=== PATIENT | female | born 1960 | race Hispanic/Latino ===

== ENCOUNTER 2016-07-27 08:16 | Emergency (ER) | payer OTHER ==
[2016-07-27 08:30] VITALS: BP 111/73; PULSE 75; TEMP 98; O2SAT 100; BMI 24.8
--- NOTE | 2016-07-27 08:34 | ED PDOC ---
HPI: General Adult Time Seen by Provider: 07/27/16 08:17 Chief Complaint (Nursing): Abdominal Pain Chief Complaint (Provider): left side pain History Per: Patient History/Exam Limitations: no limitations Onset/Duration Of Symptoms: Days (1) Additional Complaint(s): 55yo female comes to the ED complaining of left side abdominal pain since yesterday. No chest pain, shortness of breath, falls, nausea, vomit, diarrhea, vaginal bleeding, dysuria, hematuria, vaginal discharge. Past Medical History Reviewed: Historical Data, Nursing Documentation, Vital Signs Vital Signs: Last Vital Signs Temp 98 F 07/27/16 08:23 Pulse 75 07/27/16 08:23 Resp BP 111/73 07/27/16 08:23 Pulse Ox 100 07/27/16 08:37 - Medical History PMH: No Chronic Diseases - Surgical History Surgical History: (x 2) - Family History Family History: States: Unknown Family Hx - Social History Drugs: Denies - Home Medications Home Medications: Ambulatory Orders Medication Instructions Recorded Naproxen [Naprosyn] 500 mg PO BID PRN #15 tablet 01/26/16 Albuterol HFA [Ventolin HFA 90 2 puff IH [id number] PRN #1 inhaler 04/02/16 mcg/actuation (8 g)] Promethazine/Codeine 5 ml PO Q12 PRN #100 ml 04/02/16 [Codeine/Promethazine 10 MG/5 Ml-6.25 MG/5 Ml] Ciprofloxacin HCl [Cipro] 250 mg PO BID #6 tab 07/27/16 Ibuprofen [Motrin] 600 mg PO TID 7 Days 07/27/16 - Allergies Allergies/Adverse Reactions: Allergies Allergy/AdvReac Type Severity Reaction Status Date / Time No Known Allergies Allergy Verified 04/02/16 10:28 Review of Systems ROS Statement: Except As Marked, All Systems Reviewed And Found Negative Constitutional: Negative for: Fever Cardiovascular: Negative for: Chest Pain Respiratory: Negative for: Shortness of Breath Gastrointestinal: Positive for: Abdominal Pain. Negative for: Nausea, Vomiting , Diarrhea Genitourinary Female: Negative for: Dysuria, Hematuria, Vaginal Discharge, Vaginal Bleeding Physical Exam - Reviewed Nursing Documentation Reviewed: Yes Vital Signs Reviewed: Yes - Physical Exam Appears: Positive for: Well, Non-toxic, No Acute Distress Head Exam: Positive for: ATRAUMATIC, NORMAL INSPECTION, NORMOCEPHALIC Skin: Positive for: Warm, Dry Eye Exam: Positive for: EOMI, PERRL Gastrointestinal/Abdominal: Positive for: Soft, Tenderness (left lower quadrant only). Negative for: Guarding, Rebound, Other (Periumbilical tenderness, right lower quadrant tenderness) Back: Positive for: Other (left flank tenderness). Negative for: R CVA Tenderness Extremity: Positive for: Normal ROM Neurologic/Psych: Positive for: Alert, Oriented - Laboratory Results Result Diagrams: 07/27/16 09:06 07/27/16 09:06 Interpretation Of Abn Labs: urine rbc trace Urine dip results: Positive for: Leukocyte Esterase - ECG O2 Sat by Pulse Oximetry: 100 (RA) Pulse Ox Interpretation: Normal - Progress ED Course And Treament: 0817: Impression: rule out kidney stone plan: -CT abd/pel w/o -labs -IV fluids -toradol -reassess 950: Stable. AAOx3. Pain free. Tolerated PO. Ambulated with no issues. Fu with pcp. Stones in kidney, not in ureters. Disposition - Clinical Impression Clinical Impression: UTI (urinary tract infection), Abdominal pain, Kidney stones - Patient ED Disposition Is Patient to be Admitted: No Counseled Patient/Family Regarding: Studies Performed, Diagnosis, Need For Followup, Rx Given - Disposition Referrals: [facility] [Outside] - 07/29/16 Werner Hong MD [Medical Doctor] - 07/30/16 Disposition: Routine/Home Disposition Time: 09:52 Condition: CRITICAL Additional Instructions: Return if not better in 3 days. Prescriptions: Ciprofloxacin HCl [Cipro] 250 mg PO BID #6 tab Ibuprofen [Motrin] 600 mg PO TID 7 Days Instructions: Acute Abdominal Pain (ED), Urinary Tract Infection in Women (ED) , Kidney Stones (ED) Forms: [facility] ED School/Work Excuse Additional Comments - Additional Comments Additional Comments: Documented by Clinton Ruelas acting as a scribe for Mimi Lovell MD. All medical record entries made by the Scribe were at my direction and personally dictated by me. I have reviewed the chart and agree that the record accurately reflects my personal performance of the history, physical exam, medical decision making, and the department course for this patient. I have also personally directed, reviewed, and agree with the discharge instructions and disposition.
[2016-07-27] MEDS ORDERED: Sodium Chloride 0.9% 1,000 ML IV STA (08:35)
[2016-07-27 09:12] LABS: BASO % 0.6 % (0.0-2.0); EOS # 0.1 K/uL (0.0-0.7); EOS % 1.3 % (0.0-4.0); HEMATOCRIT 38.7 % (34.0-47.0); LYMPH # 1.8 K/uL (1.0-4.3); LYMPH % 23.7 % (20.0-40.0); MEAN CELL VOLUME 92.8 fl (81.0-99.0); MEAN CORPUSCULAR HEMOGLOBIN 31.6 pg (27.0-31.0); MEAN CORPUSCULAR HGB CONC 34.1 g/dL (33.0-37.0); MEAN PLATELET VOLUME 8.2 fl (7.2-11.7); MONO # 0.6 K/uL (0.0-0.8); MONO % 7.5 % (0.0-10.0); NEUT # 4.9 K/uL (1.8-7.0); NEUT % 66.9 % (50.0-75.0); RED CELL DISTRIBUTION WIDTH 13.6 % (11.5-14.5); WHITE BLOOD COUNT 7.4 K/uL (4.8-10.8)
[2016-07-27 09:25] LABS: ALB/GLOB RATIO 1.2 (1.0-2.1); ALKALINE PHOSPHATASE 81 U/L (38-126); ALT/SGPT 37 U/L (9-52); AST/SGOT 31 U/L (14-36); BILIRUBIN,TOTAL 0.5 mg/dl (0.2-1.3); BLOOD UREA NITROGEN 14 mg/dl (7-17); CALCIUM 8.9 mg/dL (8.4-10.2); CARBON DIOXIDE 23 mmol/L (22-30); CHLORIDE 107 mmol/L (98-107); GFR AFRICAN-AMERICAN > 60; GLUCOSE,RANDOM 90 mg/dL (65-105); POTASSIUM 3.8 MMOL/L (3.6-5.0); SODIUM 144 mmol/l (132-148); TOTAL PROTEIN 7.6 G/DL (6.3-8.2)
--- NOTE | 2016-07-27 09:28 | CT ---
PROCEDURE: CT Abdomen and Pelvis without intravenous contrast HISTORY: R/O stone COMPARISON: Comparison is made to the previous study dated 01/19/2013. TECHNIQUE: Axial and reformatted coronal and sagittal CT images of the abdomen and pelvis were obtained without IV or oral contrast administration. Contrast Dose: 0 Radiation dose: Total exam DLP = 522.34 mGy-cm. FINDINGS: LOWER THORAX: Unremarkable. LIVER: Unremarkable. No gross lesion or ductal dilatation. GALLBLADDER AND BILE DUCTS: Unremarkable. PANCREAS: Unremarkable. No gross lesion or ductal dilatation. SPLEEN: Unremarkable. ADRENALS: Unremarkable. No mass. KIDNEYS AND URETERS: There is a 2 millimeter nonobstructing calculus at the lower pole of the right kidney. There is also punctate less than 2 millimeter calcifications/nonobstructing stone at the midpole of the left kidney. No evidence of hydronephrosis or hydroureter. No evidence of perinephric stranding. VASCULATURE: Unremarkable. No aortic aneurysm. BOWEL: No obstruction. No gross mural thickening. Colonic diverticulosis are seen without evidence of diverticulitis. Mild constipation. APPENDIX: Unremarkable. Normal appendix. PERITONEUM: Unremarkable. No free fluid. No free air. LYMPH NODES: Unremarkable. No enlarged lymph nodes. BLADDER: Unremarkable. REPRODUCTIVE: Unremarkable. BONES: No acute fracture. OTHER FINDINGS: None. IMPRESSION: 2 millimeter nonobstructing calculus at the lower pole of the right kidney. less than 2 millimeter nonobstructing calculus at the midpole left kidney. No evidence of hydronephrosis or hydroureter. Colonic diverticulosis without evidence of diverticulitis. Mild constipation.
== END 2016-07-27 10:14 | disposition home or self-care (01) ==
LOC: H.ER 08:16
DX: N39.0 Urinary tract infection, site not specified (principal); N20.0 Calculus of kidney; R10.9 Unspecified abdominal pain

== ENCOUNTER 2016-11-22 09:33 | Observation (INO) | payer OTHER ==
[2016-11-22 09:33] VITALS: BMI 25.0
--- NOTE | 2016-11-22 11:02 | ED PDOC ---
HPI: Chest Pain Time Seen by Provider: 11/22/16 10:05 Chief Complaint (Nursing): Back Pain History Per: Patient History/Exam Limitations: no limitations Onset/Duration Of Symptoms: Days (2), Gradual Current Symptoms Are (Timing): Still Present Severity: Mild Front/Back of Body, Lg (Color): 1 - pain worse with deep breath no trauma Quality: Sharp Associated Symptoms: denies: Nausea, Dyspnea, Diaphoresis, Syncope Modifying Factors: None Exacerbating Factors: Deep Breathing Alleviating Factors: None Past Medical History Reviewed: Historical Data, Nursing Documentation, Vital Signs Vital Signs: Last Vital Signs Temp 97.7 F 11/22/16 15:45 Pulse 78 11/22/16 15:45 Resp 18 11/22/16 15:45 BP 130/90 11/22/16 15:45 Pulse Ox 98 11/22/16 15:45 - Medical History PMH: No Chronic Diseases - Surgical History Surgical History: (x 2) - Family History Family History: States: Unknown Family Hx - Living Arrangements Living Arrangements: With Family - Social History Current smoker - smoking cessation education provided: No - Home Medications Home Medications: Ambulatory Orders Medication Instructions Recorded Naproxen [Naprosyn] 500 mg PO BID PRN #15 tablet 01/26/16 Albuterol HFA [Ventolin HFA 90 2 puff IH [id number] PRN #1 inhaler 04/02/16 mcg/actuation (8 g)] Promethazine/Codeine 5 ml PO Q12 PRN #100 ml 04/02/16 [Codeine/Promethazine 10 MG/5 Ml-6.25 MG/5 Ml] Ciprofloxacin HCl [Cipro] 250 mg PO BID #6 tab 07/27/16 Ibuprofen [Motrin] 600 mg PO TID 7 Days 07/27/16 Ibuprofen [Motrin Tab] 600 mg PO QID PRN #30 tab 11/22/16 - Allergies Allergies/Adverse Reactions: Allergies Allergy/AdvReac Type Severity Reaction Status Date / Time No Known Allergies Allergy Verified 04/02/16 10:28 JUNO Risk Score for UA/NSTEMI - JUNO Risk Score Age > 64: NO 3 or more CAD Risk Factors: NO Known CAD (Stenosis greater than 50%): NO Aspirin use in past 7 days: NO Severe Angina: NO EKG ST changes greater than 0.5mm: NO Positive Cardiac Marker: NO JUNO Score: 0 Risk %: 5% Curb-65 Severity Score - CURB-65 Severity Score Confusion: No Bun >19mg/dl (>7mmol/L): No Respiratory Rate greater than/equal to 30: No Systolic BP <90 or Diastolic BP less than/equal 60mmHg: No Age >64: No Curb-65 Score: 0 Percentage 30-day mortality: 0.6% Wells Criteria for PE - Wells Criteria for Pulmonary Embolism Clinical Signs and Symptoms of DVT: No P.E is #1 Diagnosis, or Equally Likely: No Heart Rate >100: No Immobilization at least 3 days;Surgery previous 4 weeks: No Previous, objectively diagnosed PE or DVT: No Hemoptysis: No Malignancy w/treatment within 6 months, or palliative: No Total Score: 0 Review of Systems ROS Statement: Except As Marked, All Systems Reviewed And Found Negative Constitutional: Negative for: Fever, Chills Cardiovascular: Positive for: Chest Pain. Negative for: Palpitations, Edema, Light Headedness Respiratory: Negative for: Cough, Shortness of Breath, SOB with Exertion, Pleuritic Pain Gastrointestinal: Negative for: Nausea, Vomiting, Abdominal Pain Neurological: Negative for: Weakness, Numbness Physical Exam - Reviewed Nursing Documentation Reviewed: Yes Vital Signs Reviewed: Yes - Physical Exam Appears: Positive for: Well, Uncomfortable Head Exam: Positive for: ATRAUMATIC, NORMAL INSPECTION, NORMOCEPHALIC Eye Exam: Positive for: Normal appearance Neck: Positive for: Normal, Painless ROM, Supple Cardiovascular/Chest: Positive for: Regular Rate, Rhythm, Chest Non Tender. Negative for: Edema, Gallop, Murmur, Bradycardia, Tachycardia, Irregularly Irregular Respiratory: Positive for: Normal Breath Sounds. Negative for: Decreased Breath Sounds, Accessory Muscle Use, Crackles, Rales, Rhonchi, Stridor, Wheezing , Respiratory Distress Pulses-Radial (L): 2+ Pulses-Radial (R): 2+ Gastrointestinal/Abdominal: Positive for: Normal Exam, Bowel Sounds, Soft. Negative for: Tenderness Back: Positive for: Normal Inspection. Negative for: L CVA Tenderness, R CVA Tenderness Extremity: Positive for: Normal ROM. Negative for: Tenderness, Pedal Edema, Calf Tenderness, Deformity, Swelling Neurologic/Psych: Positive for: Alert, engineer II-XII, Oriented. Negative for: Motor/Sensory Deficits, Facial Droop - Laboratory Results Result Diagrams: 11/22/16 11:18 11/22/16 11:18 - ECG ECG: Positive for: Interpreted By Me ECG Rhythm: Positive for: Normal QRS, Normal ST Segment, Sinus Rhythm. Negative for: ST/T Changes Interpretation Of Abn EKG: rate of 72 no evidence of ischemia O2 Sat by Pulse Oximetry: 99 Pulse Ox Interpretation: Normal - Radiology X-Ray: Interpreted by Me X-Ray Interpretation: No Acute Disease Medical Decision Making Medical Decision Makin pm awaiting ct scan pt comfortable 2pm ct scan performed no pe but suboptimal study will get vq scan pt is comfortable and agree's with plan 4pm pt vq scan low prob will d/c home. a single neg trop r/o mi in this pt with sx for over one week. advise no exertion until seen by cardiology or medical clinic. pt agree's with plan. Disposition - Clinical Impression Clinical Impression: Mid back pain - Patient ED Disposition Is Patient to be Admitted: No Counseled Patient/Family Regarding: Studies Performed, Diagnosis, Need For Followup, Rx Given - Disposition Referrals: [facility] [Outside] Disposition: Routine/Home Disposition Time: 16:18 Condition: GOOD Prescriptions: Ibuprofen [Motrin Tab] 600 mg PO QID PRN #30 tab PRN Reason: Pain, Moderate (4-7) Instructions: Back Pain (ED)
[2016-11-22 11:25] LABS: BASO % 0.6 % (0.0-2.0); EOS # 0.1 K/uL (0.0-0.7); EOS % 1.3 % (0.0-4.0); HEMOGLOBIN 14.1 g/dL (12.0-16.0); LYMPH # 1.8 K/uL (1.0-4.3); MEAN CELL VOLUME 94.8 fl (81.0-99.0); MEAN CORPUSCULAR HEMOGLOBIN 32.4 pg (27.0-31.0); MEAN CORPUSCULAR HGB CONC 34.2 g/dL (33.0-37.0); MEAN PLATELET VOLUME 7.7 fl (7.2-11.7); MONO # 0.6 K/uL (0.0-0.8); MONO % 7.5 % (0.0-10.0); NEUT # 5.7 K/uL (1.8-7.0); NEUT % 68.6 % (50.0-75.0); NRBC % 0.2 % (0.0-0.0); RBC 4.34 Mil/uL (3.80-5.20); WHITE BLOOD COUNT 8.3 K/uL (4.8-10.8)
[2016-11-22 11:36] LABS: ALB/GLOB RATIO 1.2 (1.0-2.1); ALBUMIN 4.6 g/dL (3.5-5.0); ALT/SGPT 20 U/L (9-52); AST/SGOT 40 U/L (14-36); BLOOD UREA NITROGEN 15 mg/dl (7-17); CALCIUM 9.1 mg/dL (8.4-10.2); GFR AFRICAN-AMERICAN > 60; GFR NON-AFRICAN AMERICAN > 60; LIPASE 220 U/L (23-300)
[2016-11-22 11:43] LABS: PARTIAL THROMBOPLASTIN TIME 26.9 Seconds (25.6-37.1); PROTHROMBIN TIME 10.8 Seconds (9.8-13.1)
[2016-11-22 12:01] LABS: MAGNESIUM 2.1 MG/DL (1.6-2.3)
[2016-11-22] MEDS ORDERED: Sodium Chloride 0.9% 50 ML IV ONE (13:06)
[2016-11-22] MEDS ORDERED: Iodixanol 320 MG/ML 100 ML BOTTLE IV ONE (13:06)
--- NOTE | 2016-11-22 14:10 | CT ---
PROCEDURE: CT Chest with contrast (Pulmonary Angiogram) HISTORY: cp r/o pe COMPARISON: None available. TECHNIQUE: Axial computed tomography images were obtained of the chest in the pulmonary arterial phase of enhancement. Coronal and sagittal reformatted images were created and reviewed. Intravenous contrast dose: 90 mL Visipaque 320 Radiation dose: Total exam DLP = 328.61 mGy-cm. This CT exam was performed using one or more of the following dose reduction techniques: Automated exposure control, adjustment of the mA and/or kV according to patient size, and/or use of iterative reconstruction technique. FINDINGS: PULMONARY ARTERIES: Examination limited technically due to timing of scan relative to contrast bolus. No large central pulmonary embolism identified. Cannot rule out embolus in segmental/subsegmental vessels. AORTA: No acute findings. No thoracic aortic aneurysm. LUNGS: Unremarkable. No nodule, mass or pulmonary consolidation. PLEURAL SPACES: Unremarkable. No effusion or pneuomothorax. HEART: Unremarkable. No cardiomegaly. No significant pericardial effusion. LYMPH NODES: No lymphadenopathy. BONES, CHEST WALL: Unremarkable. No fracture or destructive lesion OTHER FINDINGS: Unremarkable. IMPRESSION: Technically limited examination. Cannot evaluate segmental/ subsegmental vessels adequately. No large central embolus identified. The remainder the examination is unremarkable.
--- NOTE | 2016-11-22 15:22 | RAD ---
HISTORY: chest pain r COMPARISON: No prior. TECHNIQUE: Chest PA and lateral FINDINGS: LUNGS: No active pulmonary disease. PLEURA: No significant pleural effusion identified. No pneumothorax apparent. CARDIOVASCULAR: Normal. OSSEOUS STRUCTURES: No significant abnormalities. VISUALIZED UPPER ABDOMEN: Normal. OTHER FINDINGS: None. IMPRESSION: No active disease.
[2016-11-22 15:46] VITALS: PULSE 78
--- NOTE | 2016-11-22 15:49 | NM ---
COMPARISON: CT angiography of the chest dated 11/22/2016 TECHNIQUE: 45.0 mCi technetium 99-m DTPA aerosol. 5.0 mCI technetium 99-m MAA administered intravenously. FINDINGS: VENTILATION COMPONENT: Limited evaluation due to extensive central tracheobronchial deposition. No ventilation defect identified. PERFUSION COMPONENT: There is no perfusion defect identified. IMPRESSION: Lowprobability ventilation perfusion scan for pulmonary embolism.
[2016-11-22 17:01] VITALS: BP 128/76; RESP 20; TEMP 97.8; O2SAT 98
--- NOTE | 2016-11-23 10:20 | CARD ---
APPROVED REPORT EKG Measurement Heart [id number] <Conclusion> Normal sinus rhythm Possible Left atrial enlargement Borderline ECG
== END 2016-11-22 17:01 | disposition home or self-care (01) ==
LOC: H.ER 09:33 → H.EROBSV 11:00
PROVIDERS: ADMIT Emergency Medicine; ATTEND Emergency Medicine
DX: R07.89 Other chest pain (principal)

== ENCOUNTER 2017-06-02 08:02 | Emergency (ER) | payer OTHER ==
[2017-06-02 08:02] VITALS: BMI 25.0
[2017-06-02 08:50] VITALS: RESP 18; O2SAT 98
[2017-06-02] MEDS ORDERED: Lidocaine 5% Patch TD STA (09:14)
--- NOTE | 2017-06-02 09:25 | ED PDOC ---
HPI: Back Chief Complaint (Nursing): Back Pain Chief Complaint (Provider): Back pain History Per: Patient History/Exam Limitations: no limitations Onset/Duration Of Symptoms: Days (x1 week) Current Symptoms Are (Timing): Still Present Quality Of Discomfort: "Pain" Associated Symptoms: None Exacerbating Factor(s): Movement, Standing (in the morning) Additional Complaint(s): Yudy Fulton is a 56 year old female, with no significant past medical history, who presents to the emergency department complaining of right lower back pain radiating down her leg posteriorly onset for x1 week. Patient states the pain is worst with movement and when she gets up in the morning. She denies any numbness, weakness, urinary symptoms, incontinence, fever or trauma. No further medical complaints. PMD: Dony Burroughs Past Medical History Reviewed: Historical Data, Nursing Documentation, Vital Signs Vital Signs: Last Vital Signs Temp 98 F 06/02/17 08:47 Pulse 87 06/02/17 08:47 Resp 18 06/02/17 08:47 BP 117/78 06/02/17 08:47 Pulse Ox 98 06/02/17 08:47 - Medical History PMH: No Chronic Diseases - Surgical History Surgical History: (x 2) - Family History Family History: States: Unknown Family Hx - Social History Current smoker - smoking cessation education provided: No Alcohol: None Drugs: Denies - Immunization History Hx Tetanus Toxoid Vaccination: No Hx Influenza Vaccination: No Hx Pneumococcal Vaccination: No - Home Medications Home Medications: Ambulatory Orders Medication Instructions Recorded Cyclobenzaprine [Cyclobenzaprine 10 mg PO BID PRN #12 tab 11/27/16 HCl] Ibuprofen [Motrin Tab] 600 mg PO PRN PRN 11/27/16 Naproxen [Naprosyn Tab] 375 mg PO BID PRN #20 tab 11/27/16 Cyclobenzaprine HCl 5 mg PO Q8 #20 tablet 06/02/17 Ibuprofen [Motrin] 600 mg PO Q6 PRN #30 tab 06/02/17 Lidocaine 5% [Lidoderm] 1 ea TD DAILY #4 patch 06/02/17 - Allergies Allergies/Adverse Reactions: Allergies Allergy/AdvReac Type Severity Reaction Status Date / Time No Known Allergies Allergy Verified 11/27/16 10:01 Review of Systems ROS Statement: Except As Marked, All Systems Reviewed And Found Negative Constitutional: Negative for: Fever Genitourinary Female: Negative for: Dysuria, Frequency, Incontinence Musculoskeletal: Positive for: Back Pain (right lower radaiting down leg), Leg Pain (right leg) Neurological: Negative for: Weakness, Numbness Physical Exam - Reviewed Nursing Documentation Reviewed: Yes Vital Signs Reviewed: Yes - Physical Exam Appears: Positive for: Non-toxic Head Exam: Positive for: ATRAUMATIC, NORMAL INSPECTION Skin: Positive for: Normal Color, Warm, Dry Eye Exam: Positive for: Normal appearance Neck: Positive for: Painless ROM, Supple Cardiovascular/Chest: Positive for: Regular Rate, Rhythm. Negative for: Murmur Respiratory: Positive for: Normal Breath Sounds. Negative for: Respiratory Distress Gastrointestinal/Abdominal: Positive for: Normal Exam, Soft. Negative for: Tenderness Back: Positive for: Vertebral Tenderness (right lower lumbar and buttocks area, worst with extension of leg. ), Other (Negative straight leg raise test.) Extremity: Negative for: Deformity, Swelling Neurologic/Psych: Positive for: Alert, Oriented (x3), Gait (steady). Negative for: Motor/Sensory Deficits, Aphasia, Facial Droop, Other (no ataxia.) - ECG O2 Sat by Pulse Oximetry: 98 (RA) Pulse Ox Interpretation: Normal Medical Decision Making Medical Decision Making: Initial Impression: sciatica Initial Plan: --Flexeril 5 mg PO --Motrin Tab 600 mg PO --Lidoderm 1ea TD --Patient will make sure to follow up with her primary care doctor. She was advised to take medications as needed and instructed on some stretching exercises. Scribe Attestation: Documented by Jeremy Ko, acting as a scribe for Ted Thompson MD Provider Scribe Attestation: All medical record entries made by the Scribe were at my direction and personally dictated by me. I have reviewed the chart and agree that the record accurately reflects my personal performance of the history, physical exam, medical decision making, and the department course for this patient. I have also personally directed, reviewed, and agree with the discharge instructions and disposition. Disposition - Clinical Impression Clinical Impression: Sciatica - Disposition Disposition Time: 09:35 Condition: IMPROVED Additional Instructions: Ms Fulton, thank you for letting us take care of you today. Your provider was Dr. Thompson. You were treated for Sciatica. The emergency medical care you received today was directed at your acute symptoms. If you were prescribed any medication, please fill it and take as directed. It may take several days for your symptoms to resolve. Return to the Emergency Department if your symptoms worsen, do not improve, or if you have any other problems. Please contact your doctor or call one of the physicians/clinics you have been referred to that are listed on the Patient Visit Information form that is included in your discharge packet. Bring any paperwork you were given at discharge with you along with any medications you are taking to your follow up visit. Our treatment cannot replace ongoing medical care by a primary care provider (PCP) outside of the emergency department. Thank you for allowing the [facility] team to be part of your care today. If you had an X-Ray or CT scan: A Radiologist will review the ED reading if any change in treatment is needed we will contact you. If you had a blood, urine, or wound culture: It will take several days for the results, if any change in treatment is needed we will contact you. If you had an STI test: It will take 48 hours for the results. Please call after 1 week if you have not heard back. Prescriptions: Cyclobenzaprine HCl 5 mg PO Q8 #20 tablet Ibuprofen [Motrin] 600 mg PO Q6 PRN #30 tab PRN Reason: Pain, Moderate (4-7) Lidocaine 5% [Lidoderm] 1 ea TD DAILY #4 patch Forms: [employer] (E[place]ian), [facility] ED School/Work Excuse
[2017-06-02] MEDS ORDERED: Lidocaine 5% Patch TD ONE (09:30)
[2017-06-02 10:00] VITALS: BP 128/78; PULSE 78; TEMP 97
== END 2017-06-02 10:00 | disposition home or self-care (01) ==
LOC: H.ER 08:02
DX: M54.31 Sciatica, right side (principal)

== ENCOUNTER 2017-10-02 14:09 | Emergency (ER) | payer OTHER ==
[2017-10-02 14:10] VITALS: BMI 25.0
[2017-10-02 14:55] VITALS: RESP 18; O2SAT 100
--- NOTE | 2017-10-02 16:34 | ED PDOC ---
HPI: General Adult Time Seen by Provider: 10/02/17 16:10 Chief Complaint (Nursing): GI Problem Chief Complaint (Provider): Rectal Pain History Per: Patient History/Exam Limitations: no limitations Onset/Duration Of Symptoms: Days (x6) Current Symptoms Are (Timing): Still Present Additional Complaint(s): 57 year old female with no significant pmhx presents to the ED for evaluation of rectal pain x6 days. Patient states she had diarrhea on Tuesday which has since resolved. She reports that since she has felt rectal pain, speciifcally when cleaning the area. She denies any rectal bleed. Patient says she thought she felt a pimple in the area and applied Neosporin. Denies fever or lesions elsewhere. PMD: Clinic Past Medical History Reviewed: Historical Data, Nursing Documentation, Vital Signs Vital Signs: Last Vital Signs Temp 98 F 10/02/17 14:52 Pulse 78 10/02/17 14:52 Resp 18 10/02/17 14:52 BP 102/78 10/02/17 14:52 Pulse Ox 100 10/02/17 16:39 - Medical History PMH: No Chronic Diseases - Surgical History Surgical History: (x 2) - Family History Family History: States: Unknown Family Hx - Social History Current smoker - smoking cessation education provided: No Alcohol: None Drugs: Denies - Immunization History Hx Tetanus Toxoid Vaccination: No Hx Influenza Vaccination: No Hx Pneumococcal Vaccination: No - Home Medications Home Medications: Ambulatory Orders Medication Instructions Recorded Cyclobenzaprine [Cyclobenzaprine 10 mg PO BID PRN #12 tab 11/27/16 HCl] Ibuprofen [Motrin Tab] 600 mg PO PRN PRN 11/27/16 Naproxen [Naprosyn Tab] 375 mg PO BID PRN #20 tab 11/27/16 Cyclobenzaprine HCl 5 mg PO Q8 #20 tablet 06/02/17 Ibuprofen [Motrin] 600 mg PO Q6 PRN #30 tab 06/02/17 Lidocaine 5% [Lidoderm] 1 ea TD DAILY #4 patch 06/02/17 Clotrimazole/Betamethasone 1 appl EXT BID #1 tube 10/02/17 [Lotrisone] Mupirocin 2% Ointment [Bactroban 1 appl TP BID #1 tube 10/02/17 Ointment] - Allergies Allergies/Adverse Reactions: Allergies Allergy/AdvReac Type Severity Reaction Status Date / Time No Known Allergies Allergy Verified 11/27/16 10:01 Review of Systems ROS Statement: Except As Marked, All Systems Reviewed And Found Negative Constitutional: Negative for: Fever Gastrointestinal: Positive for: Rectal Pain. Negative for: Hematochezia Physical Exam - Reviewed Nursing Documentation Reviewed: Yes Vital Signs Reviewed: Yes - Physical Exam Appears: Positive for: Well, No Acute Distress Rectal: Positive for: Other (pinpoint white lesions on the left budding area just outside anal opening, no fissure). Negative for: Hemorrhoids, Mass - ECG O2 Sat by Pulse Oximetry: 100 (RA) Pulse Ox Interpretation: Normal Medical Decision Making Medical Decision Makin:24 Initial Impression: Fungal infection, tinea cruris Plan: Patient is medically stable and will be discharged with Rx for Lotrisone and Bactroban. Patient advised to follow up with PMD. Return precautions given. Scribe Attestation: Documented by Rkii Ornelas, acting as a scribe for Kina Moreland MD. Provider Scribe Attestation: All medical record entries made by the Scribe were at my direction and personally dictated by me. I have reviewed the chart and agree that the record accurately reflects my personal performance of the history, physical exam, medical decision making, and the department course for this patient. I have also personally directed, reviewed, and agree with the discharge instructions and disposition. Disposition - Clinical Impression Clinical Impression: Anal irritation - Patient ED Disposition Is Patient to be Admitted: No Counseled Patient/Family Regarding: Diagnosis, Need For Followup, Rx Given - Disposition Disposition: Routine/Home Disposition Time: 16:24 Condition: GOOD Additional Instructions: USE CREAM AND OINTMENT TWICE A DAY (THEY CAN BE MIXED TOGETHER AND USED AT THE SAME TIME) FOLLOW UP WITH YOUR DOCTOR IN A WEEK TO SEE HOW YOU ARE DOING. Prescriptions: Clotrimazole/Betamethasone [Lotrisone] 1 appl EXT BID #1 tube Mupirocin 2% Ointment [Bactroban Ointment] 1 appl TP BID #1 tube Instructions: Skin Rash Forms: [employer] (Kinyarwanda)
[2017-10-02 16:55] VITALS: BP 110/76; PULSE 67; TEMP 97.9
== END 2017-10-02 16:50 | disposition home or self-care (01) ==
LOC: H.ER 14:09
DX: K62.89 Other specified diseases of anus and rectum (principal)

== ENCOUNTER 2018-02-20 08:24 | Day surgery (SDC) | payer OTHER ==
[2017-10-24 18:49] VITALS: BMI 25.0
[2018-02-20] MEDS ORDERED: Lactated Ringer's 500 ML IV ONE (08:37)
[2018-02-20] MEDS ORDERED: Midazolam 2 MG/2 ML VIAL ONE (09:47)
[2018-02-20] MEDS ORDERED: Propofol 10 mg/ml Inj (20 ML) ONE (09:47)
[2018-02-20 10:17] VITALS: TEMP 98
[2018-02-20 10:55] VITALS: BP 109/62; PULSE 81; RESP 17; O2SAT 100
== END 2018-02-20 11:01 | disposition home or self-care (01) ==
LOC: H.ENDO 08:24
PROVIDERS: ATTEND Internal Medicine Gastroenterology
DX: Z12.11 Encounter for screening for malignant neoplasm of colon (principal); K64.8 Other hemorrhoids; K57.30 Diverticulosis of large intestine without perforation or abscess without bleeding; K76.0 Fatty (change of) liver, not elsewhere classified
CPT/HCPCS: 45378; J2001; J2250; J2704; J7120

== ENCOUNTER 2018-04-29 13:47 | Emergency (ER) | payer OTHER ==
[2018-04-29 13:47] VITALS: BMI 25.0
[2018-04-29 14:02] VITALS: O2SAT 99
--- NOTE | 2018-04-29 14:45 | ED PDOC ---
HPI: Abdomen Time Seen by Provider: 04/29/18 14:17 Chief Complaint (Nursing): Abdominal Pain Chief Complaint (Provider): Abdominal pain History Per: Patient Additional Complaint(s): 57 yo female, no PMH, presents to ED with C/O left sided abdominal pain on and off x 1 week. Denies N/V/D. Pt reports pain can move all over abdomen, up and down left side and comes and goes without warning. Denies Chest pain/denies SOB Past Medical History Reviewed: Nursing Documentation, Vital Signs Vital Signs: Last Vital Signs Temp 97.9 F 04/29/18 13:58 Pulse 88 04/29/18 13:58 Resp 20 04/29/18 13:58 BP 119/67 04/29/18 13:58 Pulse Ox 99 04/29/18 13:58 - Medical History PMH: Back Problems, Chronic Pain (back) - Surgical History Surgical History: (x 2) - Family History Family History: States: Unknown Family Hx - Living Arrangements Living Arrangements: With Family - Social History Current smoker - smoking cessation education provided: No Alcohol: None Drugs: Denies - Immunization History Hx Tetanus Toxoid Vaccination: No Hx Influenza Vaccination: No Hx Pneumococcal Vaccination: No - Home Medications Home Medications: Ambulatory Orders Medication Instructions Recorded Cyclobenzaprine [Cyclobenzaprine 10 mg PO TID #20 tab 04/29/18 HCl] Ibuprofen [Motrin] 600 mg PO Q6 #20 tab 04/29/18 - Allergies Allergies/Adverse Reactions: Allergies Allergy/AdvReac Type Severity Reaction Status Date / Time No Known Allergies Allergy Verified 04/29/18 13:57 Review of Systems ROS Statement: Except As Marked, All Systems Reviewed And Found Negative Gastrointestinal: Positive for: Abdominal Pain Physical Exam - Reviewed Nursing Documentation Reviewed: Yes Vital Signs Reviewed: Yes - Physical Exam Appears: Positive for: Well, Non-toxic, No Acute Distress Head Exam: Positive for: ATRAUMATIC, NORMAL INSPECTION, NORMOCEPHALIC Skin: Positive for: Normal Color, Warm, DRY Eye Exam: Positive for: EOMI, Normal appearance, PERRL ENT: Positive for: Normal ENT Inspection Neck: Positive for: Normal, Painless ROM Cardiovascular/Chest: Positive for: Regular Rate, Rhythm Respiratory: Positive for: CNT, Normal Breath Sounds Gastrointestinal/Abdominal: Positive for: Normal Exam, Soft Back: Positive for: Normal Inspection Extremity: Positive for: Normal ROM Neurologic/Psych: Positive for: Alert, Oriented - Laboratory Results Result Diagrams: 04/29/18 15:09 04/29/18 15:09 - ECG O2 Sat by Pulse Oximetry: 99 Medical Decision Making Medical Decision Making: diagnostics ordered and labs and XR reviewed with pt who demonstrated full understanding Abdomen remains soft, non tender and non distended on re-eval. Pt offers no complaints of pain. stable for discharge home Disposition - Clinical Impression Clinical Impression: Flank pain, Gas pain - Patient ED Disposition Is Patient to be Admitted: No - Disposition Disposition: Routine/Home Disposition Time: 16:00 Condition: STABLE Prescriptions: Cyclobenzaprine [Cyclobenzaprine HCl] 10 mg PO TID #20 tab Ibuprofen [Motrin] 600 mg PO Q6 #20 tab Instructions: Flank Pain (DC), Gas and Bloating Forms: [facility] (Malay)
[2018-04-29 15:12] LABS: BASO % 0.6 % (0.0-2.0); EOS # 0.1 K/uL (0.0-0.7); EOS % 1.7 % (0.0-4.0); HEMOGLOBIN 13.9 g/dL (12.0-16.0); LYMPH # 2.2 K/uL (1.0-4.3); MEAN CELL VOLUME 94.1 fl (81.0-99.0); MEAN CORPUSCULAR HEMOGLOBIN 31.3 pg (27.0-31.0); MEAN CORPUSCULAR HGB CONC 33.3 g/dL (33.0-37.0); MEAN PLATELET VOLUME 7.9 fl (7.2-11.7); MONO # 0.5 K/uL (0.0-0.8); MONO % 7.3 % (0.0-10.0); NEUT # 3.8 K/uL (1.8-7.0); NEUT % 57.4 % (50.0-75.0); NRBC % 0.1 % (0.0-0.0); RBC 4.43 Mil/uL (3.80-5.20); WHITE BLOOD COUNT 6.6 K/uL (4.8-10.8)
[2018-04-29 15:15] LABS: SQUAMOUS EPITHIAL 1 /hpf (0-5); URINE BILIRUBIN NEGATIVE (NEGATIVE); URINE BLOOD NEGATIVE (NEGATIVE); URINE CLARITY CLEAR (Clear); URINE COLOR YELLOW (YELLOW); URINE GLUCOSE (UA) NEG (NEGATIVE); URINE LEUKOCYTE ESTERASE NEG Leu/uL (Negative); URINE PROTEIN NEGATIVE (NEGATIVE); URINE UROBILINOGEN 0.2-1.0 mg/dL (0.2-1.0)
[2018-04-29 15:22] LABS: ALB/GLOB RATIO 1.2 (1.0-2.1); ALBUMIN 4.4 g/dL (3.5-5.0); ALT/SGPT 85 U/L (9-52); AST/SGOT 79 U/L (14-36); BLOOD UREA NITROGEN 16 mg/dl (7-17); CALCIUM 9.4 mg/dL (8.4-10.2); GFR NON-AFRICAN AMERICAN > 60
--- NOTE | 2018-04-29 16:25 | RAD ---
Date of service: 04/29/2018 HISTORY: r/o constipation COMPARISON: Comparison made with radiographs of the abdomen 05/30/2013 FINDINGS: BOWEL: No evidence of acute mechanical bowel obstruction. Moderate amount of stool seen within the rectosigmoid and lesser amount in the ascending colon. No gross free intraperitoneal air seen on this limited supine view. BONES: Normal. OTHER FINDINGS: None. IMPRESSION: No evidence of acute mechanical bowel obstruction.
[2018-04-29 17:26] VITALS: BP 123/63; PULSE 83; RESP 16; TEMP 98
== END 2018-04-29 17:25 | disposition home or self-care (01) ==
LOC: H.ER 13:47
DX: R10.9 Unspecified abdominal pain (principal); R14.1 Gas pain

== ENCOUNTER 2018-08-18 13:32 | Emergency (ER) | payer OTHER ==
[2018-08-18 13:32] VITALS: BMI 25.0
[2018-08-18 13:52] VITALS: RESP 18; O2SAT 99
--- NOTE | 2018-08-18 14:33 | ED PDOC ---
Upper Extremity Pain/Injury Time Seen by Provider: 08/18/18 13:56 Chief Complaint (Nursing): Upper Extremity Problem/Injury Chief Complaint (Provider): Upper Extremity Problem/Injury History Per: Patient History/Exam Limitations: no limitations Onset/Duration Of Symptoms: Intermittent Episodes (x1 week) Current Symptoms Are (Timing): Still Present Additional Complaint(s): 57 year old female presents to the emergency department with a complaint of right upper shoulder ongoing intermittently for 1 week. She denies taking medication for relief, radiation of pain, shortness of breath, numbness, weakness, tingling sensation, chest pain, injury, falls, trauma, leg pain or swelling. 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 PCP: Omaira Akbar Past Medical History Reviewed: Historical Data, Nursing Documentation, Vital Signs Vital Signs: Last Vital Signs Temp 98.6 F 08/18/18 13:50 Pulse 73 08/18/18 13:50 Resp 18 08/18/18 13:50 BP 127/81 08/18/18 13:50 Pulse Ox 99 08/18/18 13:50 - Medical History PMH: Back Problems, Chronic Pain (back) - Surgical History Surgical History: (x 2) - Family History Family History: States: Unknown Family Hx - Immunization History Hx Tetanus Toxoid Vaccination: No Hx Influenza Vaccination: No Hx Pneumococcal Vaccination: No - Home Medications Home Medications: Ambulatory Orders Medication Instructions Recorded Cyclobenzaprine [Cyclobenzaprine 10 mg PO TID #20 tab 04/29/18 HCl] Ibuprofen [Motrin] 600 mg PO Q6 #20 tab 04/29/18 Ibuprofen [Motrin] 600 mg PO TID 7 Days tab 08/18/18 - Allergies Allergies/Adverse Reactions: Allergies Allergy/AdvReac Type Severity Reaction Status Date / Time No Known Allergies Allergy Verified 04/29/18 13:57 Review of Systems ROS Statement: Except As Marked, All Systems Reviewed And Found Negative Cardiovascular: Negative for: Chest Pain Respiratory: Negative for: Shortness of Breath Musculoskeletal: Positive for: Other (right upper shoulder pain). Negative for: Leg Pain (or swelling) Neurological: Negative for: Weakness, Numbness (or tingling) Physical Exam - Reviewed Nursing Documentation Reviewed: Yes Vital Signs Reviewed: Yes - Physical Exam Appears: Positive for: Non-toxic, No Acute Distress Head Exam: Positive for: ATRAUMATIC, NORMAL INSPECTION, NORMOCEPHALIC Skin: Positive for: Normal Color. Negative for: Rash Eye Exam: Positive for: Normal appearance Neck: Positive for: Normal, Painless ROM, Supple Cardiovascular/Chest: Positive for: Regular Rate, Rhythm, Chest Non Tender. Negative for: Edema Respiratory: Positive for: Normal Breath Sounds. Negative for: Respiratory Distress Pulses-Radial (R): 2+ Back: Positive for: Normal Inspection. Negative for: L CVA Tenderness Extremity: Positive for: Normal ROM (right shoulder and elbow), Tenderness (right supraclavicular muscle). Negative for: Deformity, Swelling (or erythema of right shoulder) Neurological/Psych: Positive for: Awake, Alert, Normal Tone, Symmetric/Intact Strength (5/5), Oriented. Negative for: Motor/Sensory Deficits - ECG O2 Sat by Pulse Oximetry: 99 (RA) Pulse Ox Interpretation: Normal - Radiology X-Ray: Read By Radiologist X-Ray Interpretation: No Acute Disease - Progress ED Course And Treament: 1605: Stable. AAOx3. Pain free. Tolerated PO. Fu with pcp. No acute findings. Possibly from work related frequent lifting. Medical Decision Making Medical Decision Making: Time: 1420 Initial Plan: * Motrin PO * CXR Time: 1538 --CXR FINDINGS: LINES AND TUBES: None. LUNG AND PLEURA: The lungs are well inflated and clear. No pleural effusion or pneumothorax. HEART AND MEDIASTINUM: The heart is not enlarged. No aortic atherosclerotic calcifications present. The hilar and mediastinal contours are within normal limits. SKELETAL STRUCTURES: The bony structures are within normal limits for the patient's age. VISUALIZED UPPER ABDOMEN: Normal. OTHER FINDINGS: None. IMPRESSION: No active pulmonary disease. Scribe Attestation: Documented by Susannah Mills, acting as a scribe for Ezra Lovell MD. Provider Scribe Attestation: All medical record entries made by the Scribe were at my direction and personally dictated by me. I have reviewed the chart and agree that the record accurately reflects my personal performance of the history, physical exam, medical decision making, and the department course for this patient. I have also personally directed, reviewed, and agree with the discharge instructions and disposition. Disposition - Clinical Impression Clinical Impression: Muscle strain - Patient ED Disposition Is Patient to be Admitted: No Counseled Patient/Family Regarding: Studies Performed, Diagnosis, Need For Followup, Rx Given - Disposition Referrals: [facility] [Outside] - 08/21/18 Disposition: Routine/Home Disposition Time: 16:07 Condition: STABLE Additional Instructions: Return if not better in 3 days. Prescriptions: Ibuprofen [Motrin] 600 mg PO TID 7 Days tab Instructions: Muscle Strain Forms: [facility] ED School/Work Excuse
--- NOTE | 2018-08-18 15:42 | RAD ---
Date of service: 08/18/2018 HISTORY: Chest pain COMPARISON: 11/22/2016. TECHNIQUE: Chest PA and lateral FINDINGS: LINES AND TUBES: None. LUNG AND PLEURA: The lungs are well inflated and clear. No pleural effusion or pneumothorax. HEART AND MEDIASTINUM: The heart is not enlarged. No aortic atherosclerotic calcifications present. The hilar and mediastinal contours are within normal limits. SKELETAL STRUCTURES: The bony structures are within normal limits for the patient's age. VISUALIZED UPPER ABDOMEN: Normal. OTHER FINDINGS: None. IMPRESSION: No active pulmonary disease.
[2018-08-18 17:29] VITALS: BP 122/80; PULSE 78; TEMP 98
== END 2018-08-18 17:28 | disposition home or self-care (01) ==
LOC: H.ER 13:32
DX: S46.911A Strain of unspecified muscle, fascia and tendon at shoulder and upper arm level, right arm, initial encounter (principal)